=== PATIENT | male | born 1935 | race Caucasian/White ===

== ENCOUNTER → 2020-06-17 | Outpatient (CLI) | payer MEDICARE ==
[~2020-06-17] MED LIST: OMNIPAQUE 350 MG/ML, 100ML BOTTLE ONE
[2020-06-17 13:34] LABS: CREATININE 0.89 mg/dL (0.7-1.3)
== END | disposition home or self-care (01) ==
LOC: RAD 12:20
PROVIDERS: ATTEND Nurse Practitioner
DX: K40.90 Unilateral inguinal hernia, without obstruction or gangrene, not specified as recurrent (principal); M47.816 Spondylosis without myelopathy or radiculopathy, lumbar region; K66.0 Peritoneal adhesions (postprocedural) (postinfection); R11.2 Nausea with vomiting, unspecified; R59.1 Generalized enlarged lymph nodes; K57.30 Diverticulosis of large intestine without perforation or abscess without bleeding; K56.609 Unspecified intestinal obstruction, unspecified as to partial versus complete obstruction
CPT/HCPCS: 36415; 74177; 82565; Q9967